=== PATIENT | female | born 1970 | race Caucasian/White ===

== ENCOUNTER 2018-02-14 12:39 | Emergency (ER) | payer SELFPAY ==
[~2018-02-14] VITALS: Ht 160 cm; Wt 66.0 kg
[2018-02-14] MEDS ORDERED: IBUPROFEN 600MG TABLET PO ONE (13:15)
[2018-02-14 14:30] VITALS: BP 120/80
== END 2018-02-14 14:35 | disposition home or self-care (01) ==
LOC: ER 13:16
DX: S62.161A Displaced fracture of pisiform, right wrist, initial encounter for closed fracture (principal); V89.2XXA Person injured in unspecified motor-vehicle accident, traffic, initial encounter; Y93.89 Activity, other specified; Y92.89 Other specified places as the place of occurrence of the external cause; Y99.8 Other external cause status
CPT/HCPCS: 29125; 73110; 73130; 81025; 99283